=== PATIENT | male | born 1955 | race African-American/Black ===

== ENCOUNTER 2021-09-03 08:39 | Day surgery (SDC) | payer MEDICAID, SELFPAY ==
[~2021-09-03] VITALS: Ht 190.5 cm; Wt 108.0 kg
[2021-09-03] MEDS ORDERED: MEPERIDINE 100 MG INJ. 100 MG/ML VIAL ONE (11:18)
[2021-09-03] MEDS ORDERED: MIDAZOLAM HCL 5 MG/5 ML VIAL ONE (11:19)
[2021-09-03 13:06] VITALS: BP_SYST 126
== END 2021-09-03 13:56 | disposition home or self-care (01) ==
LOC: SDS 08:39 → SMU 08:40 → SDS 13:56
PROVIDERS: ATTEND Internal Medicine Gastroenterology
DX: Z12.11 Encounter for screening for malignant neoplasm of colon (principal); D12.0 Benign neoplasm of cecum; K64.9 Unspecified hemorrhoids; E78.5 Hyperlipidemia, unspecified; Z79.899 Other long term (current) drug therapy; Z20.822 Contact with and (suspected) exposure to COVID-19
CPT/HCPCS: 36415; 45380; 87426; 88305; 99152; G0378; J2175; J2250; U0003; 45385

== ENCOUNTER 2022-10-09 09:36 | Emergency (ER) | payer OTHER, MEDICAID ==
[~2022-10-09] VITALS: Ht 190.5 cm; Wt 115.2 kg
[2022-10-09 09:57] VITALS: BP_SYST 133
[2022-10-09] MEDS ORDERED: ONDANSETRON HCL 4 MG/2 ML VIAL IVP ONE (10:30)
[2022-10-09] MEDS ORDERED: NACL 0.9% 1,000 ML IV ONE (10:30)
[2022-10-09 10:55] LABS: BASOPHILS # (AUTO) 0.1 K/uL (0.0-0.2); BASOPHILS % (AUTO) 0.9 % (0.0-2.0); EOSINOPHILS % (AUTO) 0.1 % (0.0-4.0); HEMATOCRIT 52.9 % (36-54); HEMOGLOBIN 17.8 g/dL (14.0-18.0); LYMPHOCYTES # (AUTO) 1.3 K/uL (1.0-5.5); LYMPHOCYTES % (AUTO) 21.6 % (20.5-51.5); MEAN CORPUSCULAR HEMOGLOBIN 30 pg (27-31); MEAN CORPUSCULAR HGB CONC 34 % (32-36); MEAN CORPUSCULAR VOLUME 88 fL (79.0-98.0); MONOCYTES # (AUTO) 1.4 K/uL (0.0-1.0); MONOCYTES % (AUTO) 22.5 % (1.7-9.3); NEUTROPHILS # (AUTO) 3.3 K/uL (1.8-7.7); NEUTROPHILS % (AUTO) 54.9 % (40.0-70.0); PLATELET COUNT (AUTO) 120 K/uL (130-430); RED BLOOD CELL COUNT(AUTO) 5.99 MIL/uL (4.2-6.2); RED CELL DISTRIBUTION WIDTH 14.7 % (9.0-15.0); WHITE BLOOD COUNT (AUTO) 6.1 K/uL (4.8-10.8)
[2022-10-09 11:07] LABS: ANION GAP 8 (5-15); CALCIUM 8.6 mg/dL (8.4-11.0); CHLORIDE 99 mmol/L (98-107); CREATININE 1.37 mg/dL (0.55-1.30); GLUCOSE 78 mg/dL (70-99); UREA NITROGEN, BLOOD 14 mg/dL (8-21)
[2022-10-09 11:08] LABS: GFR AFRICAN AMERICAN 67 mL/min (>90)
[2022-10-09 11:14] LABS: ALANINE AMINOTRANSFERASE 32 U/L (12-78); ALBUMIN 3.6 g/dL (3.4-4.8); ASPARTATE AMINOTRANSFERASE 40 U/L (10-37); TOTAL BILIRUBIN 1.8 mg/dL (0.0-1.0)
[2022-10-09 12:09] LABS: BILIRUBIN,URINE NEGATIVE (NEGATIVE); BLOOD, URINE 1+ (NEGATIVE); COLOR,URINE YELLOW (YELLOW); GLUCOSE,URINE NEGATIVE (NEGATIVE); KETONES,URINE NEGATIVE (NEGATIVE); LEUKOCYTE ESTERASE ,URINE NEGATIVE (NEGATIVE); NITRITE, URINE NEGATIVE (NEGATIVE); PH,URINE 5.5 (5.0-8.0); PROTEIN URINE NEGATIVE (NEGATIVE); UROBILINOGEN,URINE 0.2 (0.2-1.0)
[2022-10-09 12:29] LABS: CLARITY/URINE SLIGHTLY HAZY (CLEAR)
[2022-10-09 12:41] LABS: BACTERIA,URINE FEW /HPF (None Seen); RBC,URINE 0-3 /HPF (0-3); WBC,URINE NONE SEEN /HPF (0-3)
[2022-10-09 14:13] VITALS: BP_SYST 133
== END 2022-10-09 14:13 | disposition home or self-care (01) ==
LOC: SED 09:36
DX: M48.061 Spinal stenosis, lumbar region without neurogenic claudication (principal); R11.10 Vomiting, unspecified; R53.1 Weakness; G31.89 Other specified degenerative diseases of nervous system; Z79.899 Other long term (current) drug therapy
CPT/HCPCS: 99285; 70450; 96374; 71045; 96361; 80053; 81000; 83880; 84443; 85025; 84484; 36415; 93005; 72131; 76376; J2405; J7030